=== PATIENT | female | born 1970 | race American Indian/Alaskan Native ===

== ENCOUNTER 2017-04-26 14:04 | Outpatient (CLI) | payer BC ==
--- NOTE | 2017-04-26 15:28 | Mammography Report ---
Bilateral mammogram with tomosynethesis: Compared to 04/25/16. CAD study utilized. Findings: Scattered glandular parenchyma bilaterally. No mass or microcalcification. There is focal circumscribed asymmetry noted subareolar area right breast on tomosynethesis. No microcalcification. Normal axilla. Impression: Focal asymmetry subareolar right breast on tomosynethesis. Recommend sonographic examination. BI-RADS CATEGORY: 0 = Needs additional imaging evaluation ACR BI-RADS MAMMOGRAPHIC CODES: 0 = Needs additional imaging evaluation; 1 = Negative; 2 = Benign; 3 = Probably benign; 4 = Suspicious; 5 = Malignant; 6 = Known biopsy-proven malignancy COMMENT: 1. Dense breast tissue, i.e., adenosis, fibrocystic changes, etc., may obscure an underlying neoplasm. 2. Approximately 10% of cancers are not detected with mammography. 3. A negative mammography report should not delay biopsy if a clinically suspicious mass is present. COMMENT: Patient follow-up letters are generated in [employer].
--- NOTE | 2017-04-26 15:29 | Mammography Report ---
Bilateral mammogram: Compared to 09/28/15. CAD study utilized. Findings: Predominant study post tissue bilaterally. No mass or microcalcification. Benign exam. Impression: Benign findings. Annual followup recommended. BI-RADS CATEGORY: 2 = Benign ACR BI-RADS MAMMOGRAPHIC CODES: 0 = Needs additional imaging evaluation; 1 = Negative; 2 = Benign; 3 = Probably benign; 4 = Suspicious; 5 = Malignant; 6 = Known biopsy-proven malignancy COMMENT: 1. Dense breast tissue, i.e., adenosis, fibrocystic changes, etc., may obscure an underlying neoplasm. 2. Approximately 10% of cancers are not detected with mammography. 3. A negative mammography report should not delay biopsy if a clinically suspicious mass is present. COMMENT: Patient follow-up letters are generated in [employer]. Addendum #1 Addendum: Tomographic examination reveals no mass or calcification.
== END 2017-04-26 14:05 | disposition home or self-care (01) ==
LOC: MAMMO 14:04
DX: Z12.31 Encounter for screening mammogram for malignant neoplasm of breast (principal)
CPT/HCPCS: 77063; G0202; 77067

== ENCOUNTER 2017-05-08 14:44 | Outpatient (CLI) | payer BC ==
--- NOTE | 2017-05-08 15:56 | Ultrasound Report ---
Right breast ultrasound: Patient with circumscribed nodule in the right retroareolar region on recent screening mammography. Ultrasound imaging demonstrates an 8mm circumscribed echolucent lesion consistent in location and size with the mammographic finding. No other findings. Impression: Right breast cyst. Recommendation: Annual mammogram followup. BI-RADS CATEGORY: 2 = Benign ACR BI-RADS MAMMOGRAPHIC CODES: 0 = Needs additional imaging evaluation; 1 = Negative; 2 = Benign; 3 = Probably benign; 4 = Suspicious; 5 = Malignant; 6 = Known biopsy-proven malignancy COMMENT: 1. Dense breast tissue, i.e., adenosis, fibrocystic changes, etc., may obscure an underlying neoplasm. 2. Approximately 10% of cancers are not detected with mammography. 3. A negative mammography report should not delay biopsy if a clinically suspicious mass is present.
== END 2017-05-08 14:45 | disposition home or self-care (01) ==
LOC: US 14:44
DX: N60.01 Solitary cyst of right breast (principal)

== ENCOUNTER 2017-06-30 13:07 | Outpatient (CLI) | payer BC | END 2017-06-30 13:08 | disposition home or self-care (01) | LOC: LABHHL 13:07 | PROVIDERS: ATTEND Obstetrics & Gynecology | DX: Z01.419 Encounter for gynecological examination (general) (routine) without abnormal findings (principal) | CPT/HCPCS: 87591 ==

== ENCOUNTER 2017-09-15 15:35 | Emergency (ER) | payer OTHER, BC ==
[2017-09-15 15:48] VITALS: BP 132/66
[2017-09-15] MEDS ORDERED: TORADOL IM ONE (17:39)
[2017-09-15] MEDS ORDERED: FLEXERIL PO ONE (17:39)
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
== END 2017-09-15 18:33 | disposition home or self-care (01) ==
LOC: ED 15:35
DX: M79.1 Myalgia (principal); V49.59XA Passenger injured in collision with other motor vehicles in traffic accident, initial encounter; W22.10XA Striking against or struck by unspecified automobile airbag, initial encounter; Y93.89 Activity, other specified; Y92.89 Other specified places as the place of occurrence of the external cause; Y99.8 Other external cause status
CPT/HCPCS: 96372; 99282; J1885

== ENCOUNTER 2018-04-13 11:25 | Outpatient (CLI) | payer BC ==
--- NOTE | 2018-04-13 17:02 | XRay Report ---
FINAL REPORT EXAM: XR KNEE 3V RT HISTORY: R KNEE PAIN TECHNIQUE: Frontal, lateral, oblique views right knee Comparison: None FINDINGS: There is no evidence of fracture, subluxation, lytic or blastic change or periosteal reaction. There is the appearance of degenerative change of the tibiofemoral and patellofemoral joints with osteophyte formation without definite evidence of joint space loss. There is degenerative change of the articulation between the fibula and tibia with sclerosis and osteophyte formation. The soft tissues are unremarkable. IMPRESSION: 1. Appearance of degenerative change of the tibiofemoral and patellofemoral joints without definite evidence of joint space loss. 2. Degenerative change of the articulation between the fibula and tibia with sclerosis and osteophyte formation. If further imaging is required, MRI may be helpful.
== END 2018-04-13 11:26 | disposition home or self-care (01) ==
LOC: LAB 11:25
DX: M17.11 Unilateral primary osteoarthritis, right knee (principal); R35.1 Nocturia

== ENCOUNTER 2018-04-17 06:17 | Outpatient (CLI) | payer BC ==
[2018-04-17 06:44] LABS: Basophils % (Auto) 1.2 % (0.0-1.8); Eosinophils # (Auto) 0.1 K/mm3 (0.0-0.4); Eosinophils % (Auto) 2.7 % (0.0-4.3); Hematocrit 35.9 % (30.3-42.9); Hemoglobin 12.4 gm/dl (10.1-14.3); Lymphocytes # (Auto) 0.8 K/mm3 (1.2-5.4); Lymphocytes % (Auto) 21.7 % (13.4-35.0); Mean Corpuscular HGB Conc 35 % (30-34); Mean Corpuscular Hemoglobin 32 pg (28-32); Mean Corpuscular Volume 93 fl (79-97); Monocytes # (Auto) 0.3 K/mm3 (0.0-0.8); Monocytes % (Auto) 9.3 % (0.0-7.3); Platelet Count 251 K/mm3 (140-440); Red Blood Count 3.87 M/mm3 (3.65-5.03); Red Cell Distribution Width 14.2 % (13.2-15.2)
[2018-04-17 07:03] LABS: Alanine Aminotransferase 18 units/L (7-56); Albumin 4.3 g/dL (3.9-5); BUN/Creatinine Ratio 19; Blood Urea Nitrogen 15 mg/dL (7-17); Hemolysis Index 5
== END 2018-04-17 06:18 | disposition home or self-care (01) ==
LOC: LAB 06:17
DX: R35.1 Nocturia (principal)
CPT/HCPCS: 36415; 80053; 83036; 85025

== ENCOUNTER 2018-04-27 11:58 | Outpatient (CLI) | payer BC ==
--- NOTE | 2018-04-30 08:27 | Mammography Report ---
BILATERAL DIGITAL SCREENING MAMMOGRAM with CAD: 04/27/18 11:58:00 CLINICAL: Routine screening. COMPARISON:05/08/17 FINDINGS: The breasts are heterogeneously dense, which may obscure small masses. No mass, architectural distortion or suspicious calcifications. IMPRESSION: No mammographic evidence of malignancy. BI-RADS CATEGORY: 1 - - Negative RECOMMENDATION: Routine mammographic screening in one year. COMMENT: Patient follow-up letters are generated by our [employer] application.
== END 2018-04-27 11:59 | disposition home or self-care (01) ==
LOC: MAMMO 11:58
DX: Z12.31 Encounter for screening mammogram for malignant neoplasm of breast (principal)
CPT/HCPCS: 77067

== ENCOUNTER 2018-07-24 13:52 | Outpatient (CLI) | payer BC ==
--- NOTE | 2018-07-24 23:15 | Magnetic Resonance Report ---
FINAL REPORT EXAM: MR LE JOINT RT WO CON HISTORY: TEAR OF MENISCUS TECHNIQUE: MRI of the right knee was obtained utilizing the following sequences: Axial Fat-suppressed T2. Sagittal Proton density, fat-suppressed T2 Coronal T1, fat-suppressed T2 PRIORS: Right knee series from 04/13/2018 FINDINGS: Patellofemoral joint: The patellofemoral joint is normally aligned and the cartilage is well preserve d. The patellar and quadriceps tendons appear normal and intact. Medial joint: There is mild cartilaginous thinning on both sides of the joint with mild osteophyte fo rmation. There is horizontal linear signal abnormality in the posterior horn of the medial meniscus t hat contacts the inferior joint surface consistent with a tear. Lateral joint: The lateral joint cartilage and subchondral marrow are normal. The lateral meniscus is normal. Ligaments: The cruciate and collateral ligaments appear normal and intact. Marrow signal: There is normal osseous marrow signal. Soft tissues: There is a Wheatley's cyst that extends superiorly along the medial side of the knee, loan uring 5.5 x 4.4 x 1.6 cm. There is a small joint effusion. IMPRESSION: 1. Mild osteoarthrosis of the medial joint 2. Horizontal tear in the posterior horn of the medial meniscus that contacts the inferior joint surf venecia consistent with a tear 3. Wheatley's cyst that tracks superiorly along the medial side of the knee 4. Small joint effusion
== END 2018-07-24 13:53 | disposition home or self-care (01) ==
LOC: MRI 13:52
PROVIDERS: ATTEND Orthopaedic Surgery
DX: S83.241A Other tear of medial meniscus, current injury, right knee, initial encounter (principal); M17.11 Unilateral primary osteoarthritis, right knee; M71.21 Synovial cyst of popliteal space [Baker], right knee; M25.461 Effusion, right knee; X58.XXXA Exposure to other specified factors, initial encounter; Y93.89 Activity, other specified; Y92.89 Other specified places as the place of occurrence of the external cause; Y99.8 Other external cause status
CPT/HCPCS: 73721

== ENCOUNTER 2018-12-24 06:00 | Outpatient (CLI) | payer BC ==
[2018-12-24 06:59] LABS: Basophils % (Auto) 0.6 % (0.0-1.8); Eosinophils # (Auto) 0.1 K/mm3 (0.0-0.4); Hematocrit 39.9 % (30.3-42.9); Hemoglobin 13.6 gm/dl (10.1-14.3); Lymphocytes # (Auto) 0.8 K/mm3 (1.2-5.4); Lymphocytes % (Auto) 27.4 % (13.4-35.0); Mean Corpuscular HGB Conc 34 % (30-34); Mean Corpuscular Volume 94 fl (79-97); Monocytes # (Auto) 0.3 K/mm3 (0.0-0.8); Monocytes % (Auto) 9.9 % (0.0-7.3); Platelet Count 293 K/mm3 (140-440); Red Blood Count 4.26 M/mm3 (3.65-5.03); Red Cell Distribution Width 14.2 % (13.2-15.2)
[2018-12-24 07:48] LABS: Alanine Aminotransferase 27 units/L (7-56); Albumin 4.3 g/dL (3.9-5); BUN/Creatinine Ratio 13; Blood Urea Nitrogen 12 mg/dL (7-17); Calcium 8.8 mg/dL (8.4-10.2); Chol/HDL Ratio 2.65 %; HDL Cholesterol 78 mg/dL (40-59); Hemolysis Index 9; LDL Cholesterol,Direct 123 mg/dL (50-130)
[2018-12-27 10:02] LABS: Vitamin D, 25-OH, D2 <4 ng/mL
== END 2018-12-24 06:01 | disposition home or self-care (01) ==
LOC: LAB 06:00
PROVIDERS: ATTEND Internal Medicine
DX: Z13.220 Encounter for screening for lipoid disorders (principal); Z13.21 Encounter for screening for nutritional disorder; Z13.1 Encounter for screening for diabetes mellitus
CPT/HCPCS: 36415; 80053; 80061; 82306; 82607; 83036; 84443; 85025

== ENCOUNTER 2019-04-29 13:25 | Outpatient (CLI) | payer BC ==
--- NOTE | 2019-04-30 13:16 | Mammography Report ---
DIGITAL SCREENING MAMMOGRAM WITH CAD, 04/29/2019 INDICATION: Routine screening mammography. TECHNIQUE: Digital bilateral 2D mammography was obtained in the craniocaudal and mediolateral obliq ue projections. This examination was interpreted with the benefit of Computer-Aided Detection analysi s. COMPARISON: 08/28/2017 and 04/26/2017 FINDINGS: Breast Density: The breasts are heterogeneously dense, which may obscure small masses. Left outer asymmetry on the CC view requires additional imaging. No architectural distortion or suspi cious calcifications. There is no evidence of dominant mass, suspicious calcifications or architectur al distortion in the right breast. IMPRESSION: Left asymmetry requiring additional workup. Recommend recall for left exaggerated CC, ML and spot compression CC views and left breast ultrasound if needed. Follow up recommendation: Special View: Spot Category 0: Incomplete. Needs additional imaging evaluation and/or prior mammograms for comparison. A "normal" or negative report should not discourage follow up or biopsy of a clinically significant f inding. A written summary of these findings will be mailed to the patient. The patient will be entered into a mammography reporting system which will generate a reminder letter for the patient's next appointmen t at the appropriate interval. The [employer] recommends yearly mammograms starting at age 40 and continuing as l ct as a woman is in good health. Breast MRI is recommended for women with an approximate 20-25% or greater lifetime risk of breast cancer, including women with a strong family history of breast or ova parveen cancer or who have been treated for Hodgkin's disease. Signer Name: Jose Patino MD Signed: 04/30/2019 1:11 PM Workstation Name: [id number]
== END 2019-04-29 13:26 | disposition home or self-care (01) ==
LOC: MAMMO 13:25
PROVIDERS: ATTEND Internal Medicine
DX: Z12.31 Encounter for screening mammogram for malignant neoplasm of breast (principal)
CPT/HCPCS: 77067

== ENCOUNTER 2019-05-21 14:47 | Outpatient (CLI) | payer BC ==
--- NOTE | 2019-05-21 15:59 | Mammography Report ---
LEFT DIGITAL DIAGNOSTIC MAMMOGRAM WITH CAD -- 05/21/2019 LEFT LIMITED BREAST ULTRASOUND INDICATION: Recalled to evaluate mammographic asymmetries at screening. TECHNIQUE: Digital left mammographic imaging was performed. Magnification views were obtained. This examination was interpreted with the benefit of Computer-Aided Detection (CAD) analysis. COMPARISON: 04/29/2019 FINDINGS: Breast Density: The breasts are heterogeneously dense, which may obscure small masses. MAMMOGRAPHIC FINDINGS: Partial effacement of upper outer mammographic asymmetries on spot compression and spot mag views. ULTRASOUND FINDINGS: Targeted ultrasound evaluation was performed of the area of interest. Ultrasou nd of the upper outer left breast was performed and demonstrated no solid mass or shadowing. A benign cyst at 1:00 2 cm from the nipple measures 7 x 7 x 5 8 mm. A benign cyst at 1:00 6 cm from the nippl e measures 5 x 5 x 2 mm. IMPRESSION: Benign cysts of the left breast and no suspicious finding. Follow up recommendation: Routine yearly BI-RADS Category 2: Benign. A "normal" or negative report should not discourage follow up or biopsy of a clinically significant f inding. A written summary of these findings will be mailed to the patient. The patient will be entered into a mammography reporting system which will generate a reminder letter for the patient's next appointmen t at the appropriate interval. According to the [employer], yearly mammograms are recommended starting at age 40 and continuing as long as a woman is in good health. Breast MRI is recommended for women with an francia roximately 20-25% or greater lifetime risk of breast cancer, including women with a strong family his tory of breast or ovarian cancer and women who have been treated for Hodgkin's disease. Signer Name: Jose Patino MD Signed: 05/21/2019 3:54 PM Workstation Name: [id number]
--- NOTE | 2019-05-22 11:45 | Ultrasound Report ---
LEFT DIGITAL DIAGNOSTIC MAMMOGRAM WITH CAD -- 05/21/2019 LEFT LIMITED BREAST ULTRASOUND INDICATION: Recalled to evaluate mammographic asymmetries at screening. TECHNIQUE: Digital left mammographic imaging was performed. Magnification views were obtained. This e xamination was interpreted with the benefit of Computer-Aided Detection (CAD) analysis. COMPARISON: 04/29/2019 FINDINGS: Breast Density: The breasts are heterogeneously dense, which may obscure small masses. MAMMOGRAPHIC FINDINGS: Partial effacement of upper outer mammographic asymmetries on spot compression and spot mag views. ULTRASOUND FINDINGS: Targeted ultrasound evaluation was performed of the area of interest. Ultrasound of the upper outer left breast was performed and demonstrated no solid mass or shadowing. A benign c yst at 1:00 2 cm from the nipple measures 7 x 7 x 5 8 mm. A benign cyst at 1:00 6 cm from the nipple measures 5 x 5 x 2 mm. IMPRESSION: Benign cysts of the left breast and no suspicious finding. Follow up recommendation: Routine yearly BI-RADS Category 2: Benign. A "normal" or negative report should not discourage follow up or biopsy of a clinically significant f inding. A written summary of these findings will be mailed to the patient. The patient will be entered into a mammography reporting system which will generate a reminder letter for the patient's next appointmen t at the appropriate interval. According to the [employer], yearly mammograms are recommended starting at age 40 and continuing as long as a woman is in good health. Breast MRI is recommended for women with an appr oximately 20-25% or greater lifetime risk of breast cancer, including women with a strong family hist ory of breast or ovarian cancer and women who have been treated for Hodgkin's disease. Signer Name: Jose Patino MD Signed: 05/22/2019 11:40 AM Workstation Name: [id number]
== END 2019-05-21 14:48 | disposition home or self-care (01) ==
LOC: MAMMO 14:47
PROVIDERS: ATTEND Internal Medicine
DX: N60.02 Solitary cyst of left breast (principal); R92.8 Other abnormal and inconclusive findings on diagnostic imaging of breast

== ENCOUNTER 2019-07-24 12:21 | Outpatient (CLI) | payer BC ==
--- NOTE | 2019-07-24 19:08 | Ultrasound Report ---
US transvaginal, US pelvic complete INDICATION / CLINICAL INFORMATION: PELVIC MASS. COMPARISON: None available. FINDINGS: Uterus contains 2 fibroids, a posterior fibroid measuring almost 3 cm maximum diameter and the more a nterior fibroid measuring 1.5 cm. Endometrial stripe measures 1.4 cm, and there is a 6 mm cystic-appe aring area in the left inferior uterus, immediately adjacent to or possibly within the endometrial ca vity. Etiology is uncertain. Both ovaries are unremarkable. No free fluid. IMPRESSION: 1. Uterine fibroids, as described. 2. Normal ovaries. 3. 6 mm cystic area immediately adjacent to or within the left endometrial canal in the lower uterus. Etiology is uncertain. Signer Name: Mike Benavides MD Signed: 07/24/2019 7:04 PM Workstation Name: [id number]
== END 2019-07-24 12:22 | disposition home or self-care (01) ==
LOC: US 12:21
PROVIDERS: ATTEND Obstetrics & Gynecology
DX: D25.9 Leiomyoma of uterus, unspecified (principal); N85.8 Other specified noninflammatory disorders of uterus
CPT/HCPCS: 76830; 76856

== ENCOUNTER 2020-04-30 11:31 | Outpatient (CLI) | payer BC ==
--- NOTE | 2020-04-30 16:59 | Mammography Report ---
DIGITAL SCREENING MAMMOGRAM WITH CAD, 04/30/2020 INDICATION: Routine screening mammography. TECHNIQUE: Digital bilateral 2D mammography was obtained in the craniocaudal and mediolateral obliq ue projections. This examination was interpreted with the benefit of Computer-Aided Detection analysi s. COMPARISON: 04/29/2019. FINDINGS: Breast Density: The breasts are heterogeneously dense, which may obscure small masses. There is no evidence of dominant mass, suspicious calcifications or architectural distortion in eithe r breast. IMPRESSION: Follow up recommendation: Routine yearly BI-RADS Category 1: Negative. A "normal" or negative report should not discourage follow up or biopsy of a clinically significant f inding. A written summary of these findings will be mailed to the patient. The patient will be entered into a mammography reporting system which will generate a reminder letter for the patient's next appointmen t at the appropriate interval. The [employer] recommends yearly mammograms starting at age 40 and continuing as l ct as a woman is in good health. Breast MRI is recommended for women with an approximate 20-25% or greater lifetime risk of breast cancer, including women with a strong family history of breast or ova parveen cancer or who have been treated for Hodgkin's disease. Signer Name: Esdras Choudhary MD Signed: 04/30/2020 4:55 PM Workstation Name: [id number]
== END 2020-04-30 11:32 | disposition home or self-care (01) ==
LOC: MAMMO 11:31
PROVIDERS: ATTEND Internal Medicine
DX: Z12.31 Encounter for screening mammogram for malignant neoplasm of breast (principal)
CPT/HCPCS: 77067

== ENCOUNTER 2020-07-30 05:53 | Outpatient (CLI) | payer BC ==
[2020-07-30 06:27] LABS: Hematocrit 35.1 % (30.3-42.9); Mean Corpuscular HGB Conc 34 % (30-34); Mean Corpuscular Volume 92 fl (79-97); Platelet Count 282 K/mm3 (140-440); Red Cell Distribution Width 13.7 % (13.2-15.2)
[2020-07-30 06:51] LABS: Hepatitis C Virus Antibody Non-Reactive (NonReactive)
[2020-07-30 06:54] LABS: Alanine Aminotransferase 12 units/L (7-56); Blood Urea Nitrogen 10 mg/dL (7-17); Calcium 8.7 mg/dL (8.4-10.2); HDL Cholesterol 65 mg/dL (40-59); Hemolysis Index 4; LDL Cholesterol,Direct 105 mg/dL (50-130)
[2020-07-30 06:57] LABS: BUN/Creatinine Ratio 14
== END 2020-07-30 05:54 | disposition home or self-care (01) ==
LOC: LAB 05:53
PROVIDERS: ATTEND Obstetrics & Gynecology
DX: Z13.220 Encounter for screening for lipoid disorders (principal); Z13.21 Encounter for screening for nutritional disorder; Z13.1 Encounter for screening for diabetes mellitus; Z13.29 Encounter for screening for other suspected endocrine disorder; Z11.3 Encounter for screening for infections with a predominantly sexual mode of transmission
CPT/HCPCS: 36415; 80053; 80061; 82306; 83036; 84443; 85027; 86592; 86689; 86706; 86803

== ENCOUNTER 2020-09-22 13:10 | Day surgery (SDC) | payer BC ==
[2020-09-15 10:18] LABS: Hematocrit 35.9 % (30.3-42.9); Hemoglobin 12.3 gm/dl (10.1-14.3); Mean Corpuscular HGB Conc 34 % (30-34); Mean Corpuscular Volume 93 fl (79-97); Platelet Count 293 K/mm3 (140-440); Red Blood Count 3.85 M/mm3 (3.65-5.03)
--- NOTE | 2020-09-21 16:05 | History and Physical Report ---
History of Present Illness Date of examination: 09/16/20 Chief complaint: Patient presents for hysteroscopy, D&C and endometrial ablation for conservative surgical treatment of menorrhagia. History of present illness: Menstrual History: LMP (date): 08/20/2020 LMP - Character: heavy Menarche: 14 Menses interval: 15 days Menstrual flow: 5 days On BCP's at conception: no Current Method of Contraception: BTL Past History : 6 Term Births: 2 Living Children: 2 Elect. Ab: 4 # 1 Delivery date: 1989 Delivery type: # 2 Delivery date: 2000 Delivery type: P[employer] History Operations: Tubal Ligation (2000) Abnormal PAP: negative Infection History HIV Risk Eval: no Hx of STD: HSV Active Medications (reviewed today): TYLENOL CAPSULE (ACETAMINOPHEN CAPS) Current Allergies (reviewed today): TRAMADOL HCL (TRAMADOL HCL TABS) (Severe) Past Medical History: Reviewed history from 06/06/2018 and no changes required: Osteoarthritis (R) Past Surgical History: Reviewed history from 06/06/2018 and no changes required: Tubal Ligation (2000) Family History Summary: Reviewed history Last on 07/29/2020 and no changes required:09/21/2020 Other Family Member - Has No Family History of Uterine Cancer - Entered On: 06/09/2019 Other Family Member - Has No Family History of Small Bowel Cancer - Entered On: 06/09/2019 Other Family Member - Has No Family History of Stomach Cancer - Entered On: 06/09/2019 Other Family Member - Has No Family History of Pancreatic Cancer - Entered On: 06/09/2019 Other Family Member - Has No Family History of Ovarvian Cancer - Entered On: 06/09/2019 Other Family Member - Has No Family History of Kidney/Urinary Tract Cancer - Entered On: 06/09/2019 Other Family Member - Has No Family History of Spontaneous DVT-PE - Entered On: 06/09/2019 Other Family Member - Has No Family History of Colon Cancer - Entered On: 06/09/2019 Other Family Member - Has No Family History of Brain Cancer - Entered On: 06/09/2019 Other Family Member - Has No Family History of Breast Cancer - Entered On: 06/09/2019 Other Family Member - Has No Family History of Biliary Tract Cancer - Entered On: 06/09/2019 Social History: Reviewed history from 06/06/2018 and no changes required: Patient is a Smoking History: Patient has never smoked. Risk Factors: Smoked Tobacco Use: Never smoker Smokeless Tobacco Use: Never Passive smoke exposure: no Drug use: no HIV high-risk behavior: no Alcohol use: yes Exercise: yes Times per week: 2 Type of Exercise: walking Seatbelt use: 100 % Previous Tobacco Use: Signed On 08/05/2020 Smoked Tobacco Use: Never smoker Smokeless Tobacco Use: Never Passive smoke exposure: no Drug use: no HIV high-risk behavior: no Caffeine use: 1 drinks per day Previous Alcohol Use: Signed On 08/05/2020 Alcohol use: yes Type: occ Drinks per day: social Exercise: yes Times per week: 5 Type of Exercise: walk Seatbelt use: 100 % Mammogram History: Date of Last Mammogram: 04/09/2020 PAP Smear History: Date of Last PAP Smear: 07/30/2020 Review of Systems General Denies fever, chills, sweats, anorexia, fatigue, weakness, malaise, weight loss and sleep disorder. Complains of menorrhagia. Denies vaginal discharge, incontinence, dysuria, hematuria, urinary frequency, amenorrhea, abnormal vaginal bleeding, pelvic pain, genital sores, decreased libido, painful periods, painful sex, urinary urgency, hot flashes, vaginal dryness, vaginal itching and vaginal odor. CV Denies chest pains, palpitations, syncope, dyspnea on exertion, orthopnea, PND and peripheral edema. Resp Denies cough, dyspnea at rest, excessive sputum, hemoptysis, wheezing and pleurisy. GI Denies nausea, vomiting, diarrhea, constipation, change in bowel habits, abdominal pain, melena, hematochezia, jaundice, gas/bloating, indigestion/heartburn, dysphagia and odynophagia. Endo Denies cold intolerance, heat intolerance, polydipsia, polyphagia, polyuria and unusual weight change. Breast Denies left breast lump, right breast lump, nipple discharge, bloody discharge from nipple, breast pain, abnormal mammogram and breast enlargement. MS Denies back pain, joint pain, joint swelling, muscle cramps, muscle weakness, stiffness, arthritis, sciatica, restless legs, leg pain at night and leg pain with exertion. Derm Denies rash, itching, dryness and suspicious lesions. Neuro Denies paralysis, paresthesias, headache, seizures, tremors, vertigo, transient blindness, frequent falls, frequent headaches and difficulty walking. Psych Denies depression, anxiety, irritability and mood swings. Eyes Denies blurring, diplopia, irritation, discharge, vision loss, eye pain and photophobia. ENT Denies earache, ear discharge, tinnitus, decreased hearing, nasal congestion, nosebleeds, sore throat and hoarseness. Allergy Denies urticaria, allergic rash, hay fever and recurrent infections. Heme Denies abnormal bruising, bleeding and enlarged lymph nodes. Physical Exam Appearance: well developed, well nourished, no acute distress Other Exams Lungs: no rales, rhonchi, or wheezes Heart: S1, S2, no murmur, rub, or gallop Genitourinary Exam Uterus: deferred for EUA Impression & Recommendations: Problem # 1: Menorrhagia (ICD-626.2) (QAK32-T48.0) Consent reviewed and signed . Possible laparoscopy or laparotomy explained to patient. The risks and alternatives for this surgery were reviewed with the patient. She was informed of possible bleeding, infection, injury to bowel, bladder, ureters or other adjacent organs. The patient was instructed/informed the following: The normal length of hospital stay for this procedure. Nothing to eat or drink after midnight the evening prior to surgery. Pre-op instruction sheets given. Infection precautions reviewed, patient to call for any signs or symptoms of infection. The usual discomforts associated with this procedure were detailed. Proper use of pain medicines was reviewed. Patient was given ample opportunity to have all her questions answered before signing informed consent. Problem # 2: Fibroids of uterus; Intramural (ICD-218.1) ([id number]) Medications and Allergies Allergies Allergy/AdvReac Type Severity Reaction Status Date / Time tramadol Allergy Itching Verified 09/14/20 16:38 Home Medications Medication Instructions Recorded Confirmed Last Taken Type No Known Home Medications [No 09/14/20 09/14/20 Unknown History Reported Home Medications] Active Meds: Active Medications Acetaminophen (Acetaminophen 500 Mg Tab) 1,000 mg PO PREOP ADAMARIS Stop: 09/22/20 18:00 Lactated Ringer's (Lactated Ringers) 1,000 mls @ 100 mls/hr IV DIRECT ADAMARIS Stop: 09/22/20 23:59 Midazolam HCl (Midazolam 2 Mg/2 Ml Inj) 2 mg IV PREOP NR Stop: 09/22/20 23:00 Exam Vital Signs Temp Pulse Resp BP Pulse Ox 98.4 F 74 18 105/78 100 09/15/20 10:00 09/15/20 10:00 09/15/20 10:00 09/15/20 10:00 09/15/20 10:00 Results - Labs 09/15/20 10:10 Assessment and Plan - Patient Problems (1) Menorrhagia Status: Acute (2) Fibroid Status: Chronic (3) Osteoarthritis Status: Chronic
--- NOTE | 2020-09-22 10:07 | Anesthesia Consultation ---
Anesthesia Consult and Med Hx Date of service: 09/22/20 - Airway Anesthetic Teeth Evaluation: Good ROM Head & Neck: Adequate Mental/Hyoid Distance: Adequate Mallampati Class: Class III Intubation Access Assessment: Possibly Difficult - Pre-Operative Health Status ASA Pre-Surgery Classification: ASA1 Proposed Anesthetic Plan: General - Pulmonary Hx Smoking: No Hx Respiratory Symptoms: No - Cardiovascular System Hx Hypertension: No - Central Nervous System CVA: No - Endocrine Hx Renal Disease: No Hx Liver Disease: No Hx Insulin Dependent Diabetes: No Hx Non-Insulin Dependent Diabetes: No Hx Thyroid Disease: No - Other Systems Hx Obesity: Yes (BMI 32) - Additional Comments Anesthesia Medical History Comments: No hx anesthetic complications.
--- NOTE | 2020-09-22 10:08 | Anesthesia Day of Surgery ---
Anesthesia Day of Surgery - Day of Surgery Patient Examined: Yes Patient H&P Reviewed: Yes Patient is NPO: Yes
[2020-09-22] MEDS: MIDAZOLAM 2 MG/2 ML INJ IV NR ×2 (10:42→12:55)
[2020-09-22] MEDS: fentaNYL 100 MCG/2 ML INJ IV PRN ×4 (10:55→15:12)
[~2020-09-22 13:10] MED LIST: ACETAMINOPHEN 500 MG TAB PO SCH; LACTATED RINGERS 1,000 ML IV SCH; METOPROLOL TARTRATE 5 MG/5 ML INJ IV ONE; MIDAZOLAM 2 MG/2 ML INJ ONE; ONDANSETRON 4 MG/2 ML INJ IV PRN; ONDANSETRON 4 MG/2 ML INJ ONE; dexAMETHasone 20 MG/5 ML VIAL ONE; fentaNYL 100 MCG/2 ML INJ ONE; propofoL 200 MG/20 ML VIAL IV ONE
[2020-09-22] MEDS ORDERED: ePHEDrine SULFATE 50 MG/1 ML INJ ONE (13:21)
[2020-09-22] MEDS ORDERED: LIDOCAINE MPF (2%) 20 MG/1 ML VIAL 5 ML ONE (14:00)
[2020-09-22] MEDS ORDERED: KETOROLAC 30 MG/1 ML INJ ONE (14:17)
--- NOTE | 2020-09-22 14:37 | Operative Report ---
Operative Report Operative Report: Date: 09/22/2020 PREOPERATIVE DIAGNOSES: 1. Menorrhagia POSTOPERATIVE DIAGNOSES: 1. Menorrhagia 2. Endometrial polyp 3. Cervical laceration PROCEDURE PERFORMED: 1. Cervical dilation 2. Hysteroscopy 2. Uterine curettage 3. Hysteroscopic polypectomy with MyoSure device 4. Endometrial ablation using NovaSure device 5. Repair of cervical laceration ANESTHESIA: General ESTIMATED BLOOD LOSS: Less than minimal cc. URINE OUTPUT: 50 mL Uterine cavity length: 5.5 cm Uterine cavity width: 3.6 cm Wattage: 109 cm Time: 1 minute; 2 secomds INDICATIONS: This is a 50-year-old female that presents menorrhagia. PROCEDURE: The patient was seen in the preoperative suite. Expected procedure and postoperative course discussed with her. She was taken to the operative suite where general anesthesia was performed. She was placed in a dorsal lith otomy position. . A bimanual exam was done, the uterus was found to be retroverted. She was prepped and draped in the normal sterile fashion. Timeout was performed. Hernandez catheter was introduced into the bladder. Drainage of clear yellow urine was noted. The cervix and vagina were grossly normal with no obvious masses or deformities. A bivalve operative speculum was placed in the vagina and the posterior lip of the cervix was grasped with the single-tooth tenaculum. The uterus was sounded to 8.5 cm. The cervix was progressively dilated to allow the operative hysteroscope. Under direct visualization, the ostia were within normal limits. The endometrial lining appeared thickened, there endometrial polyps noted however no obvious evidence of malignancy. The hysteroscope was removed and a small sharp curette was placed intrauterine very carefully using anterior wall for guidance. Endometrial curettings were obtained. The endometrial sampling was placed on Telfa pad and sent to Pathology for evaluation, permanent. Polypoid appearing tissue was noted, using the Myosure device the tissue was removed. Once the cavity appeared to be clear, the uterine length was determined to be 5.5 cm using the SoundSure device. The NovaSure device was set at 5.5 cm corresponding to the length of the uterine cavity. The array of the NovaSure device was released. The array appeared to be intact and the device appeared to be operating appropriately. The array was placed back into the shaft of the NovaSure and the device was introduced through the cervix to the fundus of the uterus. The array was released and the device was locked. With appropriate and gentle maneuvering of the device, the width of the uterus measured to 3.6 cm. Once the integrity of the uterus was confirmed, ablation was performed using 109 andrade of energy for 1 minute and 2 seconds. The device was unlocked the array was retracted back into the shaft and the device was removed. The hysteroscope was introduced into the uterus where a uniform and appropriate ablation of all surfaces was noted. There was no evidence of perforation. At this point procedure was ended. The hysteroscope was removed. The tenaculum and speculum were removed. The cervix was found to a laceration at the posterior edge with a tenaculum was placed. The laceration was repaired and hemostasis obtained with 2-0 Vicryl in a [id number]-bi-lcijt fashion. The Hernandez was noted to drain clear yellow urine into the catheter. At which point the catheter was removed. Counts were correct. Patient was taken to the PACU stable. All specimens were sent to pathology in formalin permanent. Distention fluid: Normal saline Deficit: 20 mL
--- NOTE | 2020-09-22 14:56 | Discharge Summary ---
Providers - Providers Date of discharge: 09/22/20 Attending physician: EMILY FOX Primary care physician: RAMAKRISHNA PACE Hospitalization Condition: Good Procedures: * Hysteroscopy * Cervical dilation uterine curettage * Hysteroscopic polypectomy using the MyoSure device * Endometrial ablation using the NovaSure device * Repair of cervical laceration Hospital course: Unremarkable Disposition: DC-01 TO HOME OR SELFCARE Final Discharge Diagnosis (Prints w/discharge instructions): menorrhagia - Discharge Diagnoses (1) Menorrhagia Status: Acute (2) Fibroid Status: Chronic (3) Osteoarthritis Status: Chronic Core Measure Documentation - Palliative Care Palliative Care/ Comfort Measures: Not Applicable - Core Measures Any of the following diagnoses?: none Exam - Constitutional Vitals: Temp Pulse Resp BP Pulse Ox 99.4 F 71 16 117/77 100 09/22/20 10:05 09/22/20 10:05 09/22/20 12:55 09/22/20 10:05 09/22/20 10:05 General appearance: Present: no acute distress - Respiratory Respiratory effort: normal - Cardiovascular Rhythm: regular - Extremities Extremities: no ischemia, No edema - Psychiatric Psychiatric: appropriate mood/affect, intact judgment & insight, memory intact, cooperative - Neurologic Neurologic: CNII-XII intact Plan Activity: other (No sex, no exercise) Weight Bearing Status: Full Weight Bearing Diet: regular Special Instructions: no heavy lifting (Greater than 25 pounds) Follow up with: RAMAKRISHNA PACE MD [Primary Care Provider] - 7 Days EMILY FOX MD [Staff Physician] - (As scheduled) Prescriptions: Ketorolac [Toradol] 10 mg PO Q6H PRN #12 tablet PRN Reason: Pain
[2020-09-22 15:15] VITALS: BP 135/74
--- NOTE | 2020-09-22 15:45 | Post Anesthesia Evaluation ---
- Post Anesthesia Evaluation Patient Participated: Yes Airway Patent: Yes Stable Respiratory Function: Yes Nausea/Vomiting: No Temp > 96.8F: Yes Pain Manageable: Yes Adequeate Hydration: Yes Anesthesia Complications: No
== END 2020-09-22 13:11 | disposition home or self-care (01) ==
LOC: OR 13:10
PROVIDERS: ATTEND Obstetrics & Gynecology
DX: N92.0 Excessive and frequent menstruation with regular cycle (principal); N84.0 Polyp of corpus uteri; N88.1 Old laceration of cervix uteri; M19.90 Unspecified osteoarthritis, unspecified site; K21.9 Gastro-esophageal reflux disease without esophagitis; Z88.8 Allergy status to other drugs, medicaments and biological substances; Z79.899 Other long term (current) drug therapy; Z98.51 Tubal ligation status; Z98.890 Other specified postprocedural states; Z72.89 Other problems related to lifestyle
CPT/HCPCS: 36415; 57720; 58563; 81025; 85027; 88305; C1782; J1100; J1885; J2250; J2405; J2704; J3010; J7120; U0003

== ENCOUNTER 2021-05-03 06:16 | Outpatient (CLI) | payer BC ==
--- NOTE | 2021-05-04 07:58 | Mammography Report ---
BILATERAL DIGITAL SCREENING MAMMOGRAM WITH CAD HISTORY: Screening mammogram. TECHNIQUE: Routine digital mammographic imaging performed. This examination was interpreted with carlton bañuelos benefit of Computer-aided Detection analysis. COMPARISON: 04/30/2020, 04/29/2019, 04/27/2018, 04/26/2017. FINDINGS: Breast Density: heterogeneously dense breast parenchymal pattern which somewhat lessens the sensitivi ty of the evaluation. Digital CC and MLO views demonstrate an asymmetry in the slightly inferior far posterior right breast . This is seen on the MLO view only. No suspicious findings within the left breast. IMPRESSION: Right inferior far posterior breast asymmetry for which additional mammographic views and possible ul trasound is recommended. BIRADS 0-Incomplete: Needs additional imaging evaluation NOTE: WE WILL RECALL THE PATIENT FOR THIS ADDITIONAL EVALUATION. FURTHER INFORMATION: According to the [employer], yearly mammograms are recommend ed starting at age 40 and continuing as long as a woman is in good health. Clinical Breast Exams shou ld be part of a periodic health exam-about every 3 years for women in their 20s and 30s and every yea r for women 40 and over. Breast self exam is an option for women starting in their 20s. Any breast ch viji noted on a breast self exam should be reported promptly to the patient's healthcare provider. Br east MRI is recommended for women with an approximately 20-25% or greater lifetime risk of breast can cer, including women with a strong family history of breast or ovarian cancer and women who have been treated for Hodgkin's disease. A negative Mammography report should not discourage follow up or biopsy of a clinically significant f inding and/or abnormality. Dense breast tissue may obscure small neoplasms. The patient will be entered into a reminder system with a target due date for the next screening mamm ogram. Signer Name: Srini Presley MD Signed: 05/04/2021 7:54 AM Workstation Name: [id number]
== END 2021-05-03 06:17 | disposition home or self-care (01) ==
LOC: MAMMO 06:16
PROVIDERS: ATTEND Obstetrics & Gynecology
DX: Z12.31 Encounter for screening mammogram for malignant neoplasm of breast (principal); N64.89 Other specified disorders of breast
CPT/HCPCS: 77067

== ENCOUNTER 2021-05-17 06:36 | Outpatient (CLI) | payer BC ==
--- NOTE | 2021-05-17 15:52 | Mammography Report ---
RIGHT DIGITAL DIAGNOSTIC MAMMOGRAM WITH CAD CONVENTIONAL, 05/17/2021 RIGHT LIMITED BREAST ULTRASOUND CLINICAL INFORMATION / INDICATION: Patient presents as a callback from screening mammogram for furthe r evaluation of a nodular density in the right breast. ABNORMAL MAMMOGRAM TECHNIQUE: Digital right mammographic imaging was performed. Spot compression views were obtained. Li mited ultrasound was performed. This examination was interpreted with the benefit of Computer-Aided D etection (CAD) analysis. COMPARISON: Prior mammogram 05/03/2021 FINDINGS: Breast Density: The breasts are heterogeneously dense, which may obscure small masses. MAMMOGRAPHIC FINDINGS: Spot compression views reveal a persistent 10 mm nodular density in the 8:00 p osition of the right breast located approximately 9 cm from the nipple. Targeted ultrasound was perfo rmed for further evaluation. ULTRASOUND FINDINGS: Targeted ultrasound evaluation was performed of the area of interest. Correspo nding with the nodular density seen mammographically, there is an oval circumscribed hypoechoic mass in the right breast 8:30 position located 8 cm from nipple measuring up to 7 x 4 x 7 mm. The mass is parallel. Foci of peripheral vascularity are demonstrated. A few incidental benign intramammary lymph nodes are seen in the 9:00 position located 6 cm from the nipple, each measuring up to approximately 4 mm. IMPRESSION: 1. An oval circumscribed hypoechoic mass corresponds with the mammographic finding and is considered suspicious for malignancy, ultrasound-guided biopsy is recommended. Follow up recommendation: Biopsy BI-RADS Category 4: Suspicious for Malignancy. A "normal" or negative report should not discourage follow up or biopsy of a clinically significant f inding. A written summary of these findings will be mailed to the patient. The patient will be entered into a mammography reporting system which will generate a reminder letter for the patient's next appointmen t at the appropriate interval. According to the [employer], yearly mammograms are recommended starting at age 40 and continuing as long as a woman is in good health. Breast MRI is recommended for women with an francia roximately 20-25% or greater lifetime risk of breast cancer, including women with a strong family his tory of breast or ovarian cancer and women who have been treated for Hodgkin's disease. Signer Name: Dana Harper MD Signed: 05/17/2021 3:47 PM Workstation Name: [email or web address]
== END 2021-05-17 06:37 | disposition home or self-care (01) ==
LOC: MAMMO 06:36
PROVIDERS: ATTEND Obstetrics & Gynecology
DX: N63.13 Unspecified lump in the right breast, lower outer quadrant (principal); N92.0 Excessive and frequent menstruation with regular cycle; D25.1 Intramural leiomyoma of uterus

== ENCOUNTER 2021-05-26 14:11 | Outpatient (CLI) | payer BC ==
--- NOTE | 2021-05-26 16:18 | Ultrasound Report ---
ULTRASOUND GUIDED RIGHT BREAST BIOPSY, 05/26/2021 Right DIAGNOSTIC MAMMOGRAM CLINICAL INFORMATION / INDICATION: POST ASP RT. COMPARISON: Right breast mammogram and ultrasound from 05/17/2021 PROCEDURE: Risks, benefits, and indications to the procedure were discussed with the patient in detail, includin g bleeding, infection, hematoma formation, and inadequate tissue sampling. The patient agreed to proc eed with both verbal and written consent. A timeout procedure was performed with two patient identifi ers. The breast was prepped and draped in the usual sterile fashion. Lidocaine 1% was used for local anest hesia. Under direct ultrasound guidance, I inserted a 22-gauge needle into the cyst in the right raffy st and aspirated approximately 2 mL of clear liquid. After passing the needle through the cyst, the c yst collapsed on ultrasound. Since we were unable to determine the exact location of the cyst once ag ain, I did not leave a clip. Needle was removed and hemostasis achieved with manual pressure. A steri le dressing was applied to the skin. The patient tolerated the procedure without difficulty. No complications were encountered. Post aspiration instructions were discussed with the patient and given in writing. Specimens were se nt to pathology. IMPRESSION: 1. Technically successful ultrasound guided right breast aspiration. Recommend follow-up mammogram an d ultrasound within 3 months to ensure resolution. 2. Satisfactory post procedure mammogram. Biopsy results are pending and will be reported in an addendum. Signer Name: Nomi Russ MD Signed: 05/26/2021 4:14 PM Workstation Name: [id number]
== END 2021-05-26 14:12 | disposition home or self-care (01) ==
LOC: SPVWC 14:11
PROVIDERS: ATTEND Obstetrics & Gynecology
DX: N63.13 Unspecified lump in the right breast, lower outer quadrant (principal); R92.8 Other abnormal and inconclusive findings on diagnostic imaging of breast; E66.9 Obesity, unspecified; K21.9 Gastro-esophageal reflux disease without esophagitis; M19.90 Unspecified osteoarthritis, unspecified site; Z79.899 Other long term (current) drug therapy; Z98.890 Other specified postprocedural states
CPT/HCPCS: 76942; 88112

== ENCOUNTER 2021-07-30 09:43 | Outpatient (CLI) | payer BC | END 2021-07-30 09:44 | disposition home or self-care (01) | LOC: LABHHL 09:43 | PROVIDERS: ATTEND Surgery | DX: D23.5 Other benign neoplasm of skin of trunk (principal) | CPT/HCPCS: 88304 ==

== ENCOUNTER 2021-08-17 06:53 | Outpatient (CLI) | payer BC ==
--- NOTE | 2021-08-17 14:35 | Mammography Report ---
RIGHT DIGITAL DIAGNOSTIC MAMMOGRAM WITH CAD -- 08/17/2021 RIGHT LIMITED BREAST ULTRASOUND INDICATION: Follow-up after right breast cyst aspiration in May 2021. TECHNIQUE: Digital right mammographic imaging was performed. Limited ultrasound was performed. This examination was interpreted with the benefit of Computer-Aided Detection (CAD) analysis. COMPARISON: Ultrasound-guided right breast cyst aspiration performed on 05/26/2021. Diagnostic right mammogram performed on 05/17/2021. Screening mammogram performed on 05/03/2021. FINDINGS: Breast Density: The breast is heterogeneously dense, which may obscure small masses. MAMMOGRAPHIC FINDINGS: A 7 mm nodular density is seen in the 8-9:00 right breast posteriorly at the s ite of the previously aspirated cyst. No other significant abnormality is seen. ULTRASOUND FINDINGS: Targeted ultrasound evaluation was performed of the area of interest. A 7 mm c yst without suspicious features is seen in the 8:30 position 8 cm from the nipple at the site of prio r cyst aspiration. No other significant abnormality is identified. IMPRESSION: 7 mm recurrent cyst without suspicious features at the site of prior cyst aspiration. Continued annua l screening mammography is recommended. Follow up recommendation: Back to schedule. BI-RADS Category 2: BENIGN. A "normal" or negative report should not discourage follow up or biopsy of a clinically significant f inding. A written summary of these findings will be mailed to the patient. The patient will be entered into a mammography reporting system which will generate a reminder letter for the patient's next appointmen t at the appropriate interval. According to the [employer], yearly mammograms are recommended starting at age 40 and continuing as long as a woman is in good health. Breast MRI is recommended for women with an francia roximately 20-25% or greater lifetime risk of breast cancer, including women with a strong family his tory of breast or ovarian cancer and women who have been treated for Hodgkin's disease. Signer Name: Cheng Riley MD Signed: 08/17/2021 2:31 PM Workstation Name: [email or web address]
== END 2021-08-17 06:54 | disposition home or self-care (01) ==
LOC: MAMMO 06:53
PROVIDERS: ATTEND Surgery
DX: N60.01 Solitary cyst of right breast (principal)

== ENCOUNTER 2021-08-18 05:58 | Outpatient (CLI) | payer BC ==
[2021-08-18 06:29] LABS: Hematocrit 38.6 % (30.3-42.9); Hemoglobin 12.2 gm/dl (10.1-14.3); Mean Corpuscular HGB Conc 32 % (30-34); Mean Corpuscular Volume 92 fl (79-97); Platelet Count 301 K/mm3 (140-440); Red Blood Count 4.18 M/mm3 (3.65-5.03); Red Cell Distribution Width 13.4 % (13.2-15.2)
[2021-08-18 06:47] LABS: Alanine Aminotransferase 15 units/L (7-56); Albumin 4.1 g/dL (3.9-5); Blood Urea Nitrogen 13 mg/dL (7-17); Calcium 8.3 mg/dL (8.4-10.2); Chol/HDL Ratio 2.28 %; HDL Cholesterol 80 mg/dL (40-59); Hemolysis Index 6; LDL Cholesterol,Direct 99 mg/dL (50-130)
[2021-08-18 06:50] LABS: BUN/Creatinine Ratio 19
== END 2021-08-18 05:59 | disposition home or self-care (01) ==
LOC: LAB 05:58
PROVIDERS: ATTEND Obstetrics & Gynecology
DX: Z13.0 Encounter for screening for diseases of the blood and blood-forming organs and certain disorders involving the immune mechanism (principal); Z13.1 Encounter for screening for diabetes mellitus; Z13.220 Encounter for screening for lipoid disorders; Z13.29 Encounter for screening for other suspected endocrine disorder; Z13.21 Encounter for screening for nutritional disorder
CPT/HCPCS: 36415; 80053; 80061; 82306; 83036; 84443; 85027

== ENCOUNTER 2021-10-01 06:42 | Outpatient (CLI) | payer BC ==
--- NOTE | 2021-10-01 07:33 | XRay Report ---
RIGHT SHOULDER 3 VIEWS INDICATION / CLINICAL INFORMATION: Right shoulder pain. COMPARISON: None available. FINDINGS: BONES / JOINT(S): There are mild to moderate subchondral degenerative changes involving the greater t uberosity humeral head. There is no evidence of acute fracture, subluxation or destructive lesion. SOFT TISSUES: No significant abnormality. ADDITIONAL FINDINGS: The visualized right lung is clear. Signer Name: Anshu Nicholas MD Signed: 10/01/2021 7:29 AM Workstation Name: [id number]
== END 2021-10-01 06:43 | disposition home or self-care (01) ==
LOC: XRAY 06:42
PROVIDERS: ATTEND Internal Medicine
DX: M19.011 Primary osteoarthritis, right shoulder (principal)